=== PATIENT | male | born 1940 | race Caucasian/White ===

== ENCOUNTER 2021-10-21 09:45 | Observation (INO) | payer MEDICARE, MEDICAID, SELFPAY ==
[2021-10-21] VITALS (22 sets, daily range): BP systolic 70–135; BP diastolic 44–91; PULSE 77–121; RESP 16–30; TEMP 36.7–36.8; O2SAT 98–100
--- NOTE | ~2021-10-21 | XR_ITS ---
EXAMINATION: XR chest 1V portable DATE: 10/21/2021 10:26 INDICATION: Cough. TECHNIQUE: A single frontal view of the chest was obtained. COMPARISON: None. FINDINGS: There is mild atelectasis in left lower lung zone. No pleural effusion or pneumothorax. The heart size is normal. IMPRESSION: 1. Mild atelectasis in left lower lung zone. Reviewed, dictated and finalized at location A. RING AND LINING SUPERVISOR
--- NOTE | ~2021-10-21 | NM_ITS ---
EXAMINATION: NM pulmonary perfusion EXAM DATE: 10/21/2021 15:30 INDICATION: Dyspnea. TECHNIQUE: A perfusion lung scan was performed. The patient was injected with 3.5 mCi technetium 99 m MAA and imaged. The Modified PIOPED 2 criteria used for interpretation of this perfusion only study , with 3 possible interpretations (PE present, PE absent, nondiagnostic) based on findings present, a nd correlated with a recent chest x-ray. More specifically, a high probability scan will be interpret ed as pulmonary embolism present. A normal or near normal scan will be interpreted as pulmonary embol ism absent. And finally an intermediate probability scan will be interpreted as nondiagnostic. Corre lation is made to chest x-ray same day. FINDINGS: Some nonsegmental decreased counts along the left apex compared to right, could be asymmetr y from patient positioning, could not raise arms overhead for examination. Elevated left hemidiaphrag m. Near normal perfusion scan. IMPRESSION: PE absent. Reviewed, dictated and finalized at location A. ICATING MACHINE OPERATOR IMPRESSION: PE absent.
--- NOTE | 2021-10-21 09:55 | ECG_ITS ---
Measurements Intervals [place] Rate: 116 P: 71 MO: 127 QRS: -2 QRSD: 107 T: 73 QT: 330 QTc: 459 Interpretive Statements SINUS TACHYCARDIA CONSIDER INFERIOR INFARCT, AGE INDETERMINATE BORDERLINE ST-T WAVE ABNORMALITY- HIGH LATERAL LEADS BASELINE ARTIFACT- I, II, III, AVR, AVL, AVF, V1-V6 ABNORMAL ECG Electronically Signed On 10-21-2021 10:57:02 PATIENT SERVICES SPECIALIST by Sidney Acevedo D.O.
--- NOTE | 2021-10-21 10:18 | ED.GENADULT ---
HPI - General Adult General Chief complaint: Unspecified Stated complaint: irregular breathing Time Seen by Provider: 10/21/21 09:49 Source: RN notes reviewed History of Present Illness HPI narrative: Patient presents emergency department from [facility] via EMS for reading irregularity. Per the staff at [facility] the patient was breathing more rapid than normal. Patient has a history of severe dementia and does not speak at baseline. He is chronically on 2 L nasal cannula at all times. Per the staff the patient has had weight loss of over 30 pounds over the past 3 months and family has been discussing possibility of starting hospice Related Data Home Medications Medication Instructions Recorded Confirmed benztropine 1 mg PO DAILY 10/21/21 divalproex 125 mg PO Q8H 10/21/21 haloperidol 1 mg PO BID 10/21/21 haloperidol 2 mg PO HS 10/21/21 lisinopril 5 mg PO DAILY 10/21/21 metformin 500 mg PO DAILY 10/21/21 mirtazapine 15 mg PO HS 10/21/21 multivit with min-folic acid tablet PO 10/21/21 [Adult One Daily Multivitamin] [id number]-[id number] 1 applic TOPICAL BID 10/21/21 [Triple Antibiotic(bactitracin)] Allergies Allergy/AdvReac Type Severity Reaction Status Date / Time No Known Allergies Allergy Verified 10/21/21 10:30 Review of Systems Review of Systems: Patient is nonverbal baseline ROS unobtainable: Yes unobtainable due to medical condition [facility] Past Medical History Medical History (Updated 10/21/21 @ 18:06 by Ravi Fritz DO) Dementia Social History Social History (Updated 10/21/21 @ 18:03 by Ravi Fritz DO) Smoking status: Never smoker Exam Narrative: APPEARANCE: No acute distress, nontoxic, resting in bed EYES: EOMI HEENT: Normocephalic, atraumatic, oral mucosa dry RESPIRATORY: No respiratory distress Clear to auscultation bilaterally with no rhonchi wheezing or rales. CARDIOVASCULAR: Tachycardic and regular without murmurs rubs or gallops. ABDOMINAL: Soft, nontender, nondistended, no rebound or guarding MUSCULOSKELETAl: Moves all extremities. No clubbing, cyanosis or edema. NEURO: Awake with eyes open but does not follow commands, nonverbal SKIN:: Warm, dry. No rashes lesions or abrasions Course Course Emergency Course: Cussed with the patient's who is present states that they have been discussing hospice with no decision has been made states the patient's son is a part returning a call discussed with the patient's son. At this time he is comfortable with the patient being admitted for further medical management and hydration discussed the possibility of hospice at this time and he would prefer to wait Discussed with Dr. Palmer presentation work-up agrees with admission with consult to cardiology will also place case management Discussed Dr. Rodriguez presentation work-up agrees with consult Discussed with patient and family results of workup and diagnosis. Discussed need for admission. Patient and family understand and agree to current treatment plan Vital Signs Vital signs: Vital Signs Temperature 98.2 F 10/21/21 09:42 Pulse Rate 108 H 10/21/21 09:42 Respiratory Rate 18 10/21/21 09:42 Blood Pressure 114/71 10/21/21 09:42 Pulse Oximetry 99 10/21/21 09:42 Temperature 98.2 F 10/21/21 09:42 Pulse Rate 118 H 10/21/21 11:45 Respiratory Rate 26 H 10/21/21 11:45 Blood Pressure 122/68 10/21/21 11:31 Pulse Oximetry 99 10/21/21 10:00 Medical Decision Making Vital Signs Vital Signs: Vital Signs Temperature 98.2 F 10/21/21 09:42 Pulse Rate 108 H 10/21/21 09:42 Respiratory Rate 18 10/21/21 09:42 Blood Pressure 114/71 10/21/21 09:42 Pulse Oximetry 99 10/21/21 09:42 Temperature 98.2 F 10/21/21 09:42 Pulse Rate 118 H 10/21/21 11:45 Respiratory Rate 26 H 10/21/21 11:45 Blood Pressure 122/68 10/21/21 11:31 Pulse Oximetry 99 10/21/21 10:00 Lab Data Result diagrams: 10/21/21 10:22
[2021-10-21 10:35] LABS: Basophils Percent Auto 0.4 % (0.2-1.2); Eosinophils Percent Auto 0.1 % (0-4.4); Hematocrit 40.8 % (42.0-52.0); Hemoglobin 13.2 g/dL (14.0-18.0); Immature Granulocyte Absolute 0.03 K/mm3 (0.00-0.031); Immature Granulocyte Percent A 0.3 % (0-0.5); Immature Platelet Fraction Pct 10.5 % (0.9-11.2); Lymphocytes Absolute Auto 0.96 K/mm3 (0.9-3.2); Lymphocytes Percent Auto 8.7 % (18.3-44.2); Mean Corpuscular HGB Conc 32.4 g/dl (32-36); Mean Corpuscular Hemoglobin 30.8 pg (26-34); Mean Corpuscular Volume 95.3 fl (80-100); Mean Platelet Volume 12.9 fl (7.4-10.4); Monocytes Absolute Auto 0.3 K/mm3 (0.1-0.6); Monocytes Percent Auto 2.6 % (2.6-8.5); Neutrophils Absolute Auto 9.7 K/mm3 (1.3-6.7); Neutrophils Percent Auto 87.9 % (45.5-73.1); Platelet Count Result 218 k/mm3 (150-375); Red Blood Count 4.28 M/mm3 (4.6-6.20); Red Cell Distribution Width 13.6 % (11.5-14.5)
[2021-10-21 10:45] LABS: Alanine Aminotransferase 30 U/L (4-50); Albumin Level 3.8 g/dL (3.5-5.1); Alkaline Phosphatase 116 U/L (38-126); Anion Gap 11 mmol/L (8-16); Aspartate Amino Transferase 30 U/L (17-59); Bilirubin,Total 0.6 mg/dL (0.2-1.3); Blood Urea Nitrogen 68 mg/dL (9-20); Calcium 9.8 mg/dL (8.4-10.2); Carbon Dioxide 27 mmol/L (22-30); Chloride 108 mmol/L (98-107); Estimated CRCL calculation 20 ml/min; Estimated Glomerular Filt Rate 26; Glucose 332 mg/dL (65-110); Potassium 4.6 mmol/L (3.4-5.0); Sodium 146 mmol/L (137-145)
[2021-10-21 10:48] LABS: INR 1.3; Prothrombin Time 15.8 Seconds (11.1-14.7)
[2021-10-21 10:49] LABS: Partial Thromboplastin Time 27.4 SECONDS (22.3-36.8)
[2021-10-21 10:56] LABS: NT Pro B Type Natriuretic Pept 428 pg/mL (5-100)
[2021-10-21] MEDS: SODIUM CHLORIDE 0.9% IV 1,000 ML 999 ML IV CONT (11:39)
[2021-10-21 11:49] LABS: Add Urine Microscopic? YES; Appearance Urine Clear (Clear); Bacteria Urine Trace /hpf; Bilirubin Urine Negative (Negative); Blood Urine Negative (Negative); Color Urine Amber (Yellow); Glucose Urine UA Negative (Negative); Ketones Urine Negative (Negative); Leukocyte Esterase Ur Negative LEU/UL (Negative); Mucus Urine Rare /lpf; Nitrate Urine Negative (Negative); Protein Urine Negative (Negative); Specific Grav Ur 1.023 (1.001-1.035); Squamous Epithelial Cell Urine Rare /hpf (Few); WBC Urine 0-3 /hpf
--- NOTE | 2021-10-21 14:08 | PC.NURSE ---
second IV site unable to be started due to patient condition.. Second site considered due to positional status of initial IV. ERP informed.
[2021-10-21] MEDS: SODIUM CHLORIDE 0.9% IV 500 ML 999 ML IV CONT (15:26)
--- NOTE | 2021-10-21 15:45 | PCCCNOTE ---
CC received consult for hospice. CC met with patient and bedside, patient is not alert nor oriented at this time. states that patient is a half-way patient at [facility]. She was told to use [facility]. CC sent a referral to [facility] and called Israel with [facility]. ([phone]). , bedside RN notified. Plan will be to dc back to [facility] with [facility] once consents are signed. Patients soo Costa is the [facility]. [phone]. CC will continue to follow.
[2021-10-21] MEDS: SODIUM CHLORIDE 0.9% IV 1,000 ML 100 ML IV CONT (17:51)
--- NOTE | 2021-10-21 18:43 | PCCCNOTE ---
CC recevied call from floweree with [facility] stating that they are planning to meet at the OA, son, kat home at 7 pm to get the consents signed, [facility] made aware of late transfer, likely with hospice, back to them. Serena confirmed acceptance back to facility. , , rn, credit charge authorizer and clerical warehouseman notified of plan. CC will continue to follow.
--- NOTE | 2021-10-21 19:29 | PC.NURSE ---
Per Katya Villa, consents have been signed for hospice and pt. can return to [facility].
--- NOTE | 2021-10-21 21:27 | PC.NURSE ---
Discharge to extended care facility with hospice. Follow hospice orders.
--- NOTE | 2021-10-21 22:02 | PC.NURSE ---
Spoke to Jigna at [facility], were expecting pt.'s return and aware of hospice orders.
[2021-10-21 22:30] LABS: Troponin I 0.043 ng/mL (0.000-0.034)
--- NOTE | 2021-10-22 00:26 | PC.NURSE ---
[facility] has not arrived at this time. out on a call. pt family updated
--- NOTE | 2021-10-25 10:14 | PM.SD2 ---
Same Day Admit/Disch: HPI History of Present Illness Chief complaint: Acute renal sufficiency/sinus tachycardia/elevated Narrative: Placido Peterson Jr. is a 80 year old male The patient was admitted to the hospitalist service initially however the patient's family arrived in the ER and decided that they wanted hospice consult. The ER team consulted hospice. The family decided to proceed with hospice. The patient was discharged to hospice care. I never evaluated the patient and there was no hospitalist contact with the family. PMFSH Past Medical History Medical History (Updated 10/21/21 @ 18:06 by Ravi Fritz DO) Dementia Social History Social History (Updated 10/21/21 @ 18:03 by Ravi Fritz DO) Smoking status: Never smoker Same Day Admit/Disch: Med Pre-admit Medications Home Medications Medication Instructions Recorded Confirmed Type benztropine 1 mg PO DAILY 10/21/21 History divalproex 125 mg PO Q8H 10/21/21 History haloperidol 1 mg PO BID 10/21/21 History haloperidol 2 mg PO HS 10/21/21 History lisinopril 5 mg PO DAILY 10/21/21 History metformin 500 mg PO DAILY 10/21/21 History mirtazapine 15 mg PO HS 10/21/21 History multivit with min-folic acid tablet PO 10/21/21 History [Adult One Daily Multivitamin] oitdbyzp-yhokmcgwnk-uukzgljdc 1 applic TOPICAL BID 10/21/21 History [Triple Antibiotic(bactitracin)] DS: Summary Time Spent with Patient Time attestation: Total time spent providing and/or coordinating discharge services: DS: Admitting Diagnosis Discharge Date 10/22/21 Admitting Diagnosis Acute renal failure, dehydration Discharge Plan Discharge Attending physician on discharge: Mimi Santana Consulting providers: Marek Rodriguez Discharging Clinician: Mimi Santana Anticipated Discharge Date/Time: 10/21/21 21:44 Patient Disposition: Hospice - Medical Facility Activity: as tolerated Diet: no preference Discharge Instructions: FOLLOW [facility] Stand Alone Forms: General Discharge Information Discharge Medications: No Action haloperidol 1 mg Tablet 1 mg PO BID RF: 0 benztropine 1 mg Tablet 1 mg PO DAILY RF: 0 lisinopril 5 mg Tablet 5 mg PO DAILY RF: 0 mirtazapine 15 mg Tablet 15 mg PO HS RF: 0 haloperidol 2 mg Tablet 2 mg PO HS RF: 0 divalproex 125 mg Capsule, Delayed Rel Sprinkle 125 mg PO Q8H RF: 0 Triple Antibiotic(bactitracin) Packet 1 applic TOPICAL BID RF: 0 metformin 500 mg Tablet,Er Rachael.Retention 24 Hr 500 mg PO DAILY RF: 0 multivit with min-folic acid [Adult One Daily Multivitamin] 0.4 mg Tablet PO RF: 0 Date of admission: 10/21/21 14:50 Primary Care Provider: PHYSICIAN NOT ON STAFF,NONSTAFF Admitting Provider: Demarcus Root Attending physician on admission: Mimi Santnaa Condition: Stable
== END 2021-10-22 01:00 | disposition hospice, inpatient (51) ==
LOC: ANHED 12:02 → ANHIMU 18:05
PROVIDERS: Admitting Provider Internal Medicine; Emergency Provider Emergency Medicine; Visit Provider Internal Medicine
DX: N17.9 Acute kidney failure, unspecified (principal); E86.0 Dehydration; R00.0 Tachycardia, unspecified; R77.8 Other specified abnormalities of plasma proteins; F03.90 Unspecified dementia, unspecified severity, without behavioral disturbance, psychotic disturbance, mood disturbance, and anxiety; R06.9 Unspecified abnormalities of breathing; Z79.84 Long term (current) use of oral hypoglycemic drugs
CPT/HCPCS: 36415; 71045; 78580; 80053; 81001; 83880; 84484; 85025; 85055; 85610; 85730; 93005; 96360; 96361; 99285; A9540; G0378; J7030; J7040